=== PATIENT | male | born 1990 | race Caucasian/White ===

== ENCOUNTER 2023-06-18 14:25 | Outpatient (OUT) | payer OTHER, SELFPAY ==
[2023-06-19 15:48] LABS: C. Difficile PCR NEGATIVE (NEGATIVE)
== END 2023-06-18 14:26 | disposition home or self-care (01) ==
LOC: LAB 14:28
PROVIDERS: PCP Family Medicine; Visit Provider Family Medicine
DX: R19.7 Diarrhea, unspecified (principal)
CPT/HCPCS: 87045; 87046; 87427; 87493

== ENCOUNTER 2023-09-11 08:48 | Outpatient (OUT) | payer OTHER, SELFPAY ==
--- OUTSIDE RECORDS SUMMARY | 2023-09-11 09:10 | XMS_ITS | CCD ---
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 Role Phone FRANKO Lewis, DR LAURA Admitting Unavailable FRANKO Lewis, DR LAURA Attending Unavailable DR VALENTÍN ORDONEZ Primary Care Unavailable FRANKO Lewis, DR LAURA Consulting Unavailable Valentín Abdul Primary Care Physician Lonnie FLORIAN Attending Unavailable Valentín Abdul Referring Unavailable Allergies Allergy Classification Reported Allergen(s) Allergy Type Date of Onset Reaction(s) Facility (3 sources) Penicillin; Translations: [penicillin] Drug Allergy Weal (disorder) [facility] Repository (2 sources) Ciprofloxacin; Translations: [ciprofloxacin] Drug Allergy Weal (disorder) [facility] Medications Current Medications Medication Drug Class(es) Dates Sig (Normalized) Sig (Original) citalopram 40 mg oral tablet (1 source) Serotonin Reuptake Inhibitor Start: 07-12-2023 take 1 tablet by mouth once daily CeleXA 40 mg Tab 40 mg = 1 tab(s), Oral, Daily, Refills(s) 0 Start Date: 07/12/23 Status: Ordered lactulose 06753 mg powder for oral solution (1 source) Osmotic Laxative Start: 07-12-2023 lactulose 20 g Oral Pwdr = 1 packet(s), Oral, Daily, PRN as needed for constipation, Refills(s) 0 Start Date: 07/12/23 Status: Ordered pantoprazole 40 mg delayed release oral tablet (1 source) Proton Pump Inhibitor Start: 07-12-2023 take 1 tablet by mouth once daily Pantoprazole [address] Tab 40 mg = 1 tab(s), Oral, Daily, Refills(s) 0 Start Date: 07/12/23 Status: Ordered Problems Problem Classification Problem Date Documented Da te Episodic/Chronic Anxiety disorders (1 source) Anxiety 07-12-2023 Chronic Developmental disorders (1 source) Dyslexia 07-12-2023 Chronic Gastrointestinal hemorrhage (3 sources) Hemorrhage of rectum and anus; Translations: [Hemorrhage of anus and rectum] Onset: 07-30-2023 Episodic Other gastrointestinal disorders (1 source) Irritable bowel syndrome 07-12-2023 Chronic Other nutritional; endocrine; and metabolic disorders (1 source) Body mass index 30+ - obesity 07-30-2023 Chronic Other nutritional; endocrine; and metabolic disorders (1 source) Morbid obesity 07-30-2023 Chronic Other screening for suspected conditions (not mental disorders or infectious disease) (1 source) Encounter for screening for malignant neoplasm of prostate; Translations: [ENC SCREEN MALIG NEOPLASM PROSTATE] Onset: 08-06-2022 Episodic Results Test Name Value Interpretation Reference Range Facil ity Consent for Procedure/Surger yon 08-01-2023 Consent for Procedure/Surgery [id number] #1.00TIFF Normal [facility] Facesheeton 07-31-2023 Facesheet [id number]#1.00TIFF Normal [facility] Ambulatory Visit Summaryon 0 07-30-2023 Ambulatory Visit Summary ZULMA BELLA :1990 Visit Date:07/30/2023 Ambulatory Visit Instructions Your Care Team Attending Physician - ANIVAL LEY, Lonnie Mcarthur Primary Care Physician - Valentín Abdul MD Referring Physician - Valentín Abdul MD This Is Your Medications List citalopram (CeleXA 40 mg Tab) lactulose (lactulose 20 g Oral Pwdr) pantoprazole (Pantoprazole [address] Tab) Procedures Performed Circumcision, Evacuation of hematoma, Repair of right inguinal hernia. Discharge Vitals Heart Rate (Peripheral) 72 Respiratory Rate 16 Blood Pressure 126/80 Height 170 cm Height 67 in Weight 103 kg Weight 226.6 lb BMI 35.64 Medications What How Much When Instructions Unchanged citalopram (CeleXA 40 mg Tab) 1 Tablets By Mouth Every day Unchanged lactulose (lactulose 20 g Oral Pwdr) 1 Packets By Mouth Every day as needed for as needed for constipation Unchanged pantoprazole (Pantoprazole [address] Tab) 1 Tablets By Mouth Every day Medications and Immunizations Administered Not Given influenza virus vaccine, inactivated, Patient Refuses Allergies Cipro (Hives) penicillin (Hives) Problems Ongoing - Any problem that you are currently receiving treatment for. Anxiety BMI 35.0-35.9,adult Dyslexia Irritable bowel syndrome Morbid obesity Rectal bleed Patient Survey You may receive a survey via text or e-mail asking about your office visit. Please share your experience with us by completing your survey. We appreciate your feedback and thank you for choosing us for your care. Normal [facility] Physician Referralon 024 Physician Referral [id number] #1.00TIFF Normal [facility] INSULINon 07-31-2022 Insulin 17.5 uIU/mL Normal 2.6-24.9 [facility] Comment on above: Performed By: #### I NSULIN #### [facility] [address] [place] [address] Dr. Ashanti Deras CBC AUTO DIFFon 07-30-2022 BASO # 0.1 103/ul Normal 0.0-0.1 [facility] Comment on above: Performed By: #### C BC #### [facility] [address] [address] [address] Ashanti Deras Basophils/100 WBC (Bld) 1.2 % Normal 0.2-2.0 [facility] Comment on above: Performed By: #### C BC #### [facility] [address] [address] [address] Ashanti Deras EO # 0.3 103/ul Normal 0.0-0.7 [facility] Comment on above: Performed By: #### C BC #### [facility] [address] [address] [address] Ashanti Deras Eosinophils/100 WBC (Bld) 4.0 % Normal 0.9-7.0 [facility] Comment on above: Performed By: #### C BC #### [facility] [address] [place] [address] Dr. Ashanti Deras Erythrocyte distribution width (RBC) [Ratio] 12.6 % Normal 11.0-15.0 [facility] Comment on above: Performed By: #### C BC #### [facility] [address] [place] [address] Dr. Ashanti Deras Hematocrit (Bld) [Volume fraction] 44.4 % Normal 42.0-54.0 [facility] Comment on above: Performed By: #### C BC #### [facility] [address] [address] [address] Ashanti Deras Hemoglobin (Bld) [Mass/Vol] 15.3 g/dL Normal 14.0-18.0 [facility] Comment on above: Performed By: #### C BC #### [facility] [address] [place] [address] Dr. Ashanti Deras IG # 0.02 10e3/ul Normal 0.00-0.03 [facility] Comment on above: Performed By: #### C BC #### [facility] [address] [place] [address] Dr. Ashanti Deras IG % 0.3 % Normal 0.0-0.5 [facility] Comment on above: Performed By: #### C BC #### [facility] [address] [place] [address] Dr. Ashanti Deras LYMPH # 2.3 103/ul Normal 1.2-3.8 [facility] Comment on above: Performed By: #### C BC #### [facility] [address] [place] [address] Dr. Ashanti Deras Lymphocytes/100 WBC (Bld) 34.0 % Normal 20.5-60.0 [facility] Comment on above: Performed By: #### C BC #### [facility] [address] [place] [address] Dr. Ashanti Deras MANUAL DIFF REQ NO Normal [facility] Comment on above: Performed By: #### C BC #### [facility] [address] [place] [address] Dr. Ashanti Deras MCH (RBC) [Entitic mass] 30.6 pg Normal 25.9-34.0 [facility] Comment on above: Performed By: #### C BC #### [facility] [address] [place] [address] Dr. Ashanti Deras MCHC (RBC) [Mass/Vol] 34.5 g/dL Normal 29.9-35.2 [facility] Comment on above: Performed By: #### C BC #### [facility] [address] [place] [address] Dr. Ashanti Deras MCV (RBC) [Entitic vol] 88.8 fL Normal 80.0-94.0 [facility] Comment on above: Performed By: #### C BC #### [facility] [address] [place] [address] Dr. Ashanti Deras MONO # 0.6 103/ul Normal 0.3-0.8 [facility] Comment on above: Performed By: #### C BC #### [facility] [address] [place] [address] Dr. Ashanti Deras Monocytes/100 WBC (Bld) 9.5 % Normal 1.7-12.0 [facility] Comment on above: Performed By: #### C BC #### [facility] [address] [place] [address] Dr. Ashanti Deras NEUT # 3.4 103/ul Normal 1.4-6.5 [facility] Comment on above: Performed By: #### C BC #### [facility] [address] [place] [address] Dr. Ashanti Deras Neutrophils/100 WBC (Bld) 51.0 % Normal 43.0-75.0 [facility] Comment on above: Performed By: #### C BC #### [facility] [address] [place] [address] Dr. Ashanti Deras Platelet mean volume (Bld) [Entitic vol] 11.2 fL Normal 9.5-13.5 [facility] Comment on above: Performed By: #### C BC #### [facility] [address] [place] [address] Dr. Ashanti Deras PLT 228 103/ul Normal 150-450 [facility] Comment on above: Performed By: #### C BC #### [facility] [address] [address] [address] Ashanti Deras RBC 5.00 106/ul Normal 4.70-6.10 [facility] Comment on above: Performed By: #### C BC #### [facility] [address] [place] [address] Dr. Ashanti Deras WBC 6.7 103/ul Normal 4.0-11.0 [facility] Comment on above: Performed By: #### C BC #### [facility] [address] [place] [address] Dr. Ashanti Deras FREE THYROXINE INDEX T7on FTI 2.38 Normal 1.30-4.50 [facility] Comment on above: Performed By: #### U CHEIKH, TSH, T7, CMP, LIPID #### [facility] [address] [place] [address] Dr. Ashanti Deras T3U 35.0 % Normal 33.0-40.0 [facility] Comment on above: Performed By: #### U CHEIKH, TSH, T7, CMP, LIPID #### [facility] [address] [place] [address] Dr. Ashanti Deras T4 [Mass/Vol] 6.80 ug/dL Normal 4.50-12.10 [facility] Comment on above: Performed By: #### U CHEIKH, TSH, T7, CMP, LIPID #### [facility] [address] [place] [address] Dr. Ashanti Deras GLYCOHEMOGLOBIN A1Con 2022 ADA RECOMMENDATION SEE BELOW Normal [facility] Comment on above: Result Comment: ADA RECOMMENDED LIMIT 4.0 - 6.0 ADA THERAPEUTIC TARGET < 7.0 ACTION SUGGESTED > 7.0 Performed By: #### A 1C #### [facility] [address] [place] [address] Dr. Ashanti Deras Glucose [Mass/Vol] 114 mg/dL Normal [facility] Comment on above: Performed By: #### A 1C #### [facility] [address] [place] [address] Dr. Ashanti Deras HbA1c (Bld) [Mass fraction] 5.6 % Normal 4.5-6.2 [facility] Comment on above: Performed By: #### A 1C #### [facility] [address] [address] [address] Ashanti Deras LIPID PROFILEon 07-30-2022 CHOL-HDL RATIO NORM SEE BELOW Normal [facility] Comment on above: Result Comment: 3.3 - 4.4 LOW RISK 4.4 - 7.1 AVERAGE RISK 7.1 - 11.0 MODERATE RISK >11.0 HIGH RISK Performed By: #### U CHEIKH, TSH, T7, CMP, LIPID #### [facility] [address] [address] [address] Ashanti Deras Cholesterol [Mass/Vol] 135 mg/dL Normal <=200 [facility] Comment on above: Performed By: #### U CHEIKH, TSH, T7, CMP, LIPID #### [facility] [address] [place] [address] Dr. Ashanti Deras Cholesterol in HDL [Mass/Vol] 26 mg/dL Critically low 40-60 [facility] Comment on above: Performed By: #### U CHEIKH, TSH, T7, CMP, LIPID #### [facility] [address] [address] [address] Ashanti Deras Cholesterol in LDL [Mass/Vol] 82.2 mg/dL Normal [facility] Comment on above: Performed By: #### U CHEIKH, TSH, T7, CMP, LIPID #### [facility] [address] [address] [address] Ashanti Deras Cholesterol.total/Cho lesterol in HDL [Mass ratio] 5.2 {ratio} Normal [facility] Comment on above: Performed By: #### U CHEIKH, TSH, T7, CMP, LIPID #### [facility] [address] [address] [address] Ashanti Deras HDL NORMAL > or = 60 mg/dl - LOW CARDIOVASCULAR RISK <40 mg/dl - HIGH CARDIOVASCULAR RISK Normal [facility] Comment on above: Performed By: #### U CHEIKH, TSH, T7, CMP, LIPID #### [facility] [address] [place] [address] Dr. Ashanti Deras LDL CALC NORMAL SEE BELOW Normal [facility] Comment on above: Result Comment: <100 mg/dl OPTIMAL 100 - 129 mg/dl NEAR OR ABOVE OPTIMAL 130 - 159 mg/dl BORDERLINE HIGH 160 - 189 mg/dl HIGH >190 mg/dl VERY HIGH Performed By: #### U CHEIKH, TSH, T7, CMP, LIPID #### [facility] [address], [place] [address] Dr. Ashanti Deras Triglyceride [Mass/Vol] 134 mg/dL Normal <=150 [facility] Comment on above: Performed By: #### U CHEIKH, TSH, T7, CMP, LIPID #### [facility] [address] [address] [address] Ashanti Deras VLDL CALC 26.8 mg/dL Normal [facility] Comment on above: Performed By: #### U CHEIKH, TSH, T7, CMP, LIPID #### [facility] [address] [address] [address] Ashanti Deras OCC BLD IMMUNO SCREENon 07-18 OCCULT BLOOD Negative Normal NEGATIVE [facility] Comment on above: Performed By: #### O BSCRN #### [facility] [address] [address] [address] Ashanti Deras PROF 14(COMP METB)on 023 Albumin [Mass/Vol] 4.2 g/dL Normal 3.4-5.0 [facility] Comment on above: Performed By: #### U CHEIKH, TSH, T7, CMP, LIPID #### [facility] [address] [address] [address] Ashanti Deras Albumin/Globulin [Mass ratio] 1.3 {ratio} Normal [facility] Comment on above: Performed By: #### U CHEIKH, TSH, T7, CMP, LIPID #### [facility] [address] [address] [address] Ashanti Deras ALP [Catalytic activity/Vol] 70 U/L Normal 46-116 [facility] Comment on above: Performed By: #### U CHEIKH, TSH, T7, CMP, LIPID #### [facility] [address] [address] [address] Ashanti Deras ALT [Catalytic activity/Vol] 46 U/L Normal 16-63 [facility] Comment on above: Performed By: #### U CHEIKH, TSH, T7, CMP, LIPID #### [facility] [address] [address] [address] Ashanti Deras Anion gap [Moles/Vol] 11.8 mmol/L Normal Th e [facility] Comment on above: Performed By: #### U CHEIKH, TSH, T7, CMP, LIPID #### [facility] [address] [address] [address] Ashanti Deras AST [Catalytic activity/Vol] 28 U/L Normal 15-37 [facility] Comment on above: Performed By: #### U CHEIKH, TSH, T7, CMP, LIPID #### [facility] [address] [place] [address] Dr. Ashanti Deras Bilirubin [Mass/Vol] 0.9 mg/dL Normal 0.2-1.0 [facility] Comment on above: Performed By: #### U CHEIKH, TSH, T7, CMP, LIPID #### [facility] [address] [address] [address] Ashanti Deras Calcium [Mass/Vol] 8.7 mg/dL Normal 8.5-10.1 [facility] Comment on above: Performed By: #### U CHEIKH, TSH, T7, CMP, LIPID #### [facility] [address] [address] [address] Ashanti Deras Chloride [Moles/Vol] 106 mmol/L Normal 98-107 [facility] Comment on above: Performed By: #### U CHEIKH, TSH, T7, CMP, LIPID #### [facility] [address] [address] [address] Ashanti Deras CO2 [Moles/Vol] 26.9 mmol/L Normal 21.0-32.0 [facility] Comment on above: Performed By: #### U CHEIKH, TSH, T7, CMP, LIPID #### [facility] [address] [address] [address] Ashanti Deras Creatinine [Mass/Vol] 1.15 mg/dL Normal 0.70-1.30 [facility] Comment on above: Performed By: #### U CHEIKH, TSH, T7, CMP, LIPID #### [facility] [address] [place] [address] Dr. Ashanti Deras EGFR-AF UGANDAN >60 Normal >=60 [facility] Comment on above: Performed By: #### U CHEIKH, TSH, T7, CMP, LIPID #### [facility] [address] [address] [address] Ashanti Deras EGFR-NON AF UGANDAN >60 Normal >=60 [facility] Comment on above: Performed By: #### U CHEIKH, TSH, T7, CMP, LIPID #### [facility] [address] [place] [address] Dr. Ashanti Deras Globulin (S) [Mass/Vol] 3.3 g/dL Normal [facility] Comment on above: Performed By: #### U CHEIKH, TSH, T7, CMP, LIPID #### [facility] [address] [place] [address] Dr. Ashanti Deras Glucose [Mass/Vol] 103 mg/dL Normal 74-106 [facility] Comment on above: Performed By: #### U CHEIKH, TSH, T7, CMP, LIPID #### [facility] [address] [address] [address] Ashanti Deras Potassium [Moles/Vol] 3.7 mmol/L Normal 3.5-5.1 [facility] Comment on above: Performed By: #### U CHEIKH, TSH, T7, CMP, LIPID #### [facility] [address] [place] [address] Dr. Ashanti Deras Protein [Mass/Vol] 7.5 g/dL Normal 6.4-8.2 [facility] Comment on above: Performed By: #### U CHEIKH, TSH, T7, CMP, LIPID #### [facility] [address] [place] [address] Dr. Ashanti Deras Sodium [Moles/Vol] 141 mmol/L Normal 136-145 [facility] Comment on above: Performed By: #### U CHEIKH, TSH, T7, CMP, LIPID #### [facility] [address] [address] [address] Ashanti Deras Urea nitrogen [Mass/Vol] 12.0 mg/dL Normal 7.0-18.0 [facility] Comment on above: Performed By: #### U CHEIKH, TSH, T7, CMP, LIPID #### [facility] [address] [place] [address] Dr. Ashanti Deras Urea nitrogen/Creatinine [Mass ratio] 10.4 mg/mg Normal [facility] Comment on above: Performed By: #### U CHEIKH, TSH, T7, CMP, LIPID #### [facility] [address] [place] [address] Dr. Ashanti Deras TSHon 07-30-2022 TSH 0.880 uIU/mL Normal 0.358-3.740 [facility] Comment on above: Performed By: #### U CHEIKH, TSH, T7, CMP, LIPID #### [facility] [address] [place] [address] Dr. Ashanti Deras URIC ACID SERUMon 07-30-2022 Urate [Mass/Vol] 7.6 mg/dL Critically high 3.5-7.2 [facility] Comment on above: Performed By: #### U CHEIKH, TSH, T7, CMP, LIPID #### [facility] [address] [place] [address] Dr. Ashanti Deras Vital Signs Date Time Vital Sign Value Performing Clinician Jude hu 07-30-2023 13:07-0400 Blood Pressure Location Lonnie FLORIAN [facility] 07-30-2023 13:07-0400 Diastolic blood pressure 80 mm[Hg] Lonnie FLORIAN [facility] 07-30-2023 13:07-0400 Heart rate 72 /min Lonnie FLORIAN [facility] 07-30-2023 13:07-0400 Respiratory rate 16 /min Lonnie FLORIAN [facility] 07-30-2023 13:07-0400 Systolic blood pressure 126 mm[Hg] Lonnie FLORIAN [facility] Encounters Encounter Date Encounter Type Care Provider Facility Start: 07-30-2023 End: 07-31-2023 ambulatory Lonnie FLORIAN Facility:[facility] Start: 07-30-2023 End: 07-30-2023 Patient encounter procedure Lonnie FLORIAN [facility] Start: 06-28-2023 ambulatory Lonnie FLORIAN Facility: [facility] Start: 08-06-2022 Encounter for genera l adult medical examination without abnormal findings DR VALENTÍN ABDUL . [facility] Start: 07-30-2022 End: 07-31-[address] VALENTÍN ABDUL . Facility: Start: 07-30-2022 End: 07-31-2022 Encounter for general adult medical examination without abnormal findings DR VALENTÍN ABDUL . Facility: Procedures Date Procedure Procedure Detail Performing Clinician Start: 07-30-[address] PK ABDUL . Comment on above: Performed By: #### P [facility] #### [facility] [address] [place] [address] Dr. Ashanti Deras Circumcision Lonnie JAMESEz Evacuation of hematoma Zander FLORIAN Comment on above: penile Repair of right ingu inal hernia Lonnie RAMIREZEz Immunizations Immunization Date Immunization Notes Care Provider Fa cili 02-13-2023 influenza virus vaccine, unspecified formulation Lonnie RAMIREZEz [facility] 03-24-2022 SARS-CoV-2 (COVID-19 ) [id number] Lonnie RAMIREZL [facility] 01-04-2022 SARS-CoV-2 mRNA (vqcfzblazzb-vztv-kzrt ose) vaccine Lonnie RAMIREZL [facility] 04-14-2021 SARS-CoV-2 (COVID-19 ) mRNA BNT-162b2 vax Lonnie FLORIAN [facility] 09-24-2020 SARS-CoV-2 (COVID-19 ) Ad26 vaccine, recombinant Lonnie FLORIAN [facility] Comment on above: Result Comment: 2023: TPVAL NEGATED: Highlighted row has not occurred!07-30-2023 influenza virus vaccine, unspecified formulation Lonnie FLORIAN [facility] Payers Date Payer Category Payer Unknown [id number] 1990 Unknown [id number] 1990 Unknown [id number] Social History Date Type Detail Facility Start: 07-30-2023 Tobacco smoking status Never s moked tobacco (finding) [facility] [place] Tobacco smoking status Never Gener [facility] Sex Assigned At Male [facility] Functional Status Date Assessment Result Facility 07-30-2023 Functional Status N/A [facility] Clinical Note 07-30-2023 Note Date & Type Note Facility 07-30-2023 Note Chief Complaint consultation for rectal bleeding HPI Staff 33 year old male presents on consultation from Dr. Abdul for rectal bleeding. Reports approximate 2 month history of intermittent rectal bleeding with bowel movements. Reports blood is bright red. Reports noting blood primarily in toilet water. Notes occasional mucus as well. Denies rectal pain or change in bowel habits. Patient with history of chronic constipation for which he takes Lactulose PRN. Rare crampy abdominal pain. Denies nausea or vomiting. No unexplained weight loss. Never had colonoscopy in the past. No known family history of IBD or colon cancer. History of Present Illness 33 yo male with h/o dyslexia, IBS, anxiety, referred for intermittent rectal bleeding, began 2 months ago, red blood with bms, painless, no hemorrhoid prolapse, in toilet bowel and with wiping; can have looser or firm stools but happens with both, no abd pain, was worse when he would take ibuprofen, but happens even without it; h/o chronic constipation for which he takes Lactulose as needed; only abdominal operation was RIHR; no asa use; no SBE prophylaxis; no fmhx of colon cancer or IBD. no tobacco use. Review of Systems PHQ Score Initial Depression Screen Score: 0 SCORE ROS - Provider Constitutional: no fever, no sweats, no weight loss. Eyes: no glasses, no blurred vision, no visual loss. ENMT: no dentures, no hoarseness, no swallowing difficulties, no hearing loss, no ear infection(s), no nose bleeds. Cardiovascular: normal blood pressure, no chest pain, regular heartbeat, no heart murmur. Respiratory: no shortness of breath, no cough, no asthma, no wheezing. Gastrointestinal: no nausea, no vomiting, no diarrhea, no constipation, no blood in stool, yes change in bowel habits, no abdominal pain, no hepatitis. Genitourinary: no kidney stones, no urine infection, no dysuria. Musculoskeletal: no pain, no weakness. Skin: no changing moles, no rash, no skin lumps. Neurologic: no seizures, no epilepsy, no headache. Psychiatric: no emotional or psychiatric problem. Heme/Lymph: no bleeding problems, no anemia, no blood clots, no transfusions. Allergy/Immunologic: no swollen lymph nodes/glands, no IV drug abuse. Other: Additional ROS info: Except as noted in the above Review of Systems and in the History of Present Illness, all other systems have been reviewed and are negative or noncontributory. Physical Exam Vitals & Measurements HR: 72(Peripheral) RR: 16 BP: 126/80 HT: 67 in HT: 170 cm WT: 103 kg WT: 226.6 lb BMI: 35.64 HEENT: normal conjunctiva, sclera clear, no scleral icterus, EOM intact, PERRLA, oral mucosa moist without lesions. Neck: trachea midline, no mass, symmetric, no thyromegaly or nodules, no adenopathy Respiratory: lungs CTA, respirations non labored. Cardiovascular: regular rate and rhythm, no murmur, no pedal edema or varicosities. Gastrointestinal: obese,soft, non distended, no tenderness, no masses, no palpable hernias, diastasis recti yes, no hepatosplenomegaly; normal bs Lymphatic: no cervical adenopathy, no supraclavicular adenopathy. Musculoskeletal: normal gait, digits and nails without infection, nodes, cyanosis, clubbing. Skin: no rashes, no lesions, no ulcers, no subcutaneous nodules, induration. Psychiatric/Neuro: oriented to time, place, person, judgement normal, affect appropriate for age, insight intact, no focal deficits. Tests: , review of old records completed , Discussed surgical options, risks, and possible complications with patient. Assessment/Plan 1. Rectal bleeding (K62.5: Hemorrhage of anus and rectum) plan colonoscopy under anesthesia for further evaluation, informed consent obtained. Follow-up No qualifying data available Problem List/Past Medical History Ongoing Anxiety BMI 35.0-35.9,adult Dyslexia Irritable bowel syndrome Morbid obesity Rectal bleed Rectal bleeding Historical No qualifying data Procedure/Surgical History Circumcision, Evacuation of hematoma, Repair of right inguinal hernia. Medications CeleXA 40 mg Tab, 40 mg= 1 tab(s), Oral, Daily lactulose 20 g Oral Pwdr, 1 packet(s), Oral, Daily, PRN Pantoprazole [address] Tab, 40 mg= 1 tab(s), Oral, Daily Allergies Cipro (Hives) penicillin (Hives) Social History Alcohol - Denies Alcohol Use, 07/30/2023 Substance Abuse - Denies Substance Abuse, 07/30/2023 Tobacco Never (less than 100 in lifetime) Tobacco Use:. Never Smokeless Tobacco Use:., 07/30/2023 Family History Asthma: Brother. Diabetes mellitus type 2: Mother. Heart disease: Mother and Father. Hypertension: Mother. Ovarian cancer: Mother. Pancreatic adenocarcinoma: Father. Immunizations Vaccine Date Status Comments influenza virus vaccine, inactivated - Not Given Patient Refuses influenza virus vaccine, inactivated 02/13/2023 Recorded SARS-CoV-2 (COVID-19) [id number] 03/24/2022 Recorded SARSCoV2 mRNA(vjaewdiyt-iyjw-siuhef) vac 01/04/2022 Recorded S (more content not included)... [facility] Comment on above: Result Comment: Elec tronically Signed By: ANIVAL LEY, Lonnie Maddox\Date and Time Signed: 07/30/23 20:22 EDT Evaluation + Plan note Note Date & Type Note Facility Evaluation + Plan note No data available for this section [facility] Discharge instructions Note Date & Type Note Facility Hospital Discharge instructions No data available for this section [facility] note Note Date & Type Note Facility Progress note No data available for this section [facility] Summary Purpose Family History No Family History Records Found No data available for this section No Family History Records Found Advance Directives No Advanced Directives Records FoundNo Advanced Directives Records Found Additional Source Comments (unrecognized sect ion and content) No Status Records FoundNo Status Records Found INFORMATION SOURCE (unrecogn ized section and content) DATE CREATED AUTHOR 08/06/2022 [facility] DATE CREATED AUTHOR AUTHOR'S ORGANIZ ATION 08/02/2023 [facility] Patient Care team informatio n (unrecognized section and content) Personnel Name: Valentín Abdul MD Address: Address: [address] [place] [address] FOR RECORDS PERTAINING TO PATIENTS WHO ARE OR HAVE BEEN ENROLLED IN A CHEMICAL DEPENDENCY/SUBSTANCEABUSE PROGRAM, SOME INFORMATION MAY BE OMITTED. This clinical summary was aggregated from multiple sources. Caution should be exercised in using it in the provision of clinical care. This summary normalizes information from multiple sources, and as a consequence, information in this document may materially change the coding, format and clinical context of patient data. In addition, data may be omitted in some cases. CLINICAL DECISIONS SHOULD BE BASED ON THE PRIMARY CLINICAL RECORDS. [facility] provides no warranty or guarantee of the accuracy or completeness of information in this document.
== END 2023-09-11 08:49 | disposition home or self-care (01) ==
LOC: PST 08:49
PROVIDERS: PCP Family Medicine; Visit Provider Surgery
DX: Z01.818 Encounter for other preprocedural examination (principal); K62.5 Hemorrhage of anus and rectum; K59.09 Other constipation

== ENCOUNTER 2023-09-18 06:23 | Day surgery (SDC) | payer OTHER, SELFPAY ==
--- NOTE | 2023-09-18 | OP_ITS ---
OPERATION DATE: 09/18/2023 PREOPERATIVE DIAGNOSIS: Rectal bleeding, bowel changes. POSTOPERATIVE DIAGNOSIS: Normal colonoscopy to terminal ileum. PROCEDURE: Colonoscopy to terminal ileum. SURGEON: Lonnie Dowling M.D. ANESTHESIA: Monitored anesthesia care. ESTIMATED BLOOD LOSS: Zero. INDICATIONS AND CONSENT: Patient is a 33-year-old male presents for evaluation of bowel changes and rectal bleeding. Indications, risks, benefits, alternatives of proceeding with colonoscopy were explained extensively to the patient, including the risks of bleeding, colon perforation or anesthetic complications. All of his questions were answered. Informed consent was obtained. PROCEDURE: Patient brought to the operating room, placed in the left lateral decubitus position. Monitored anesthesia care was provided. Rectal exam was performed which showed no masses or blood. The scope was inserted into the anal canal. Under direct visualization was advanced. It was advanced to the cecum where cecal markings were clearly identified. There was noted to be a good prep. Upon withdrawal of the scope, mucosal surfaces were carefully examined. There were no mass lesions or polyps. It should be noted that the terminal ileum was intubated and found to be normal without ulceration or inflammation. There was no significant diverticulosis. The scope was retroflexed in the anal canal. There was no significant hemorrhoidal disease, no evidence of old or new blood. Scope was then withdrawn. Patient tolerated procedure well, was sent to recovery room in good condition. screening colonoscopy should be in 10 years. CC: Ha Hankins M.D. MTDD
--- OUTSIDE RECORDS SUMMARY | 2023-09-18 06:26 | XMS_ITS | CCD ---
Author Organization [facility] Care Team Providers Care Learning Design Specialist Name Role Phone FRANKO Lewis, DR LAURA Admitting Unavailable FRANKO Lewis, DR LAURA Attending Unavailable DR VALENTÍN ORDONEZ Primary Care Unavailable FRANKO Lewis, DR LAURA Consulting Unavailable Valentín Abdul Primary Care Physician Lonnie FLORIAN Attending Unavailable Valentín Abdul Referring Unavailable Allergies Allergy Classification Reported Allergen(s) Allergy Type Date of Onset Reaction(s) Facility (3 sources) Penicillin; Translations: [penicillin] Drug Allergy Weal (disorder) [facility] Repository (2 sources) Ciprofloxacin; Translations: [ciprofloxacin] Drug Allergy Weal (disorder) [facility] [place] Medications Current Medications Medication Drug Class(es) Dates Sig (Normalized) Sig (Original) citalopram 40 mg oral tablet (1 source) Serotonin Reuptake Inhibitor Start: 07-12-2023 take 1 tablet by mouth once daily CeleXA 40 mg Tab 40 mg = 1 tab(s), Oral, Daily, Refills(s) 0 Start Date: 07/12/23 Status: Ordered lactulose 38190 mg powder for oral solution (1 source) [...] for Procedure/Surger yon 08-01-2023 Consent for Procedure/Surgery [id number] #1.00TIFF Normal [facility] Facesheeton 07-31-2023 Facesheet [id number]#1.00TIFF Normal [facility] Ambulatory Visit Summaryon 0 07-30-2023 Ambulatory Visit [...] for choosing us for your care. Normal [facility] Physician Referralon 024 Physician Referral [id number] #1.00TIFF Normal [facility] INSULINon 07-31-2022 Insulin 17.5 uIU/mL Normal 2.6-24.9 [facility] Comment on above: Performed By: #### I NSULIN #### [facility] [address] [place] [address] Dr. Ashanti Deras CBC AUTO DIFFon 07-30-2022 BASO # 0.1 103/ul Normal 0.0-0.1 [facility] Comment on above: Performed By: #### C BC #### [facility] [address] [address] [address] Ashanti Deras Basophils/100 WBC (Bld) 1.2 % Normal 0.2-2.0 [facility] Comment on above: Performed By: #### C BC #### [facility] [address] [address] [address] Ashanti Deras EO # 0.3 103/ul Normal 0.0-0.7 [facility] Comment on above: Performed By: #### C BC #### [facility] [address] [address] [address] Ashanti Deras Eosinophils/100 WBC (Bld) 4.0 % Normal 0.9-7.0 [facility] Comment on above: Performed By: #### C BC #### [facility] [address] [place] [address] Dr. Ashanti Deras Erythrocyte distribution width (RBC) [Ratio] 12.6 % Normal 11.0-15.0 [facility] Comment on above: Performed By: #### C BC #### [facility] [address] [place] [address] Dr. Ashanti Deras Hematocrit (Bld) [Volume fraction] 44.4 % Normal 42.0-54.0 [facility] Comment on above: Performed By: #### C BC #### [facility] [address] [address] [address] Ashanti Deras Hemoglobin (Bld) [Mass/Vol] 15.3 g/dL Normal 14.0-18.0 [facility] Comment on above: Performed By: #### C BC #### [facility] [address] [place] [address] Dr. Ashanti Deras IG # 0.02 10e3/ul Normal 0.00-0.03 [facility] Comment on above: Performed By: #### C BC #### [facility] [address] [place] [address] Dr. Ashanti Deras IG % 0.3 % Normal 0.0-0.5 [facility] Comment on above: Performed By: #### C BC #### [facility] [address] [place] [address] Dr. Ashanti Deras LYMPH # 2.3 103/ul Normal 1.2-3.8 [facility] Comment on above: Performed By: #### C BC #### [facility] [address] [place] [address] Dr. Ashanti Deras Lymphocytes/100 WBC (Bld) 34.0 % Normal 20.5-60.0 [facility] Comment on above: Performed By: #### C BC #### [facility] [address] [place] [address] Dr. Ashanti Deras MANUAL DIFF REQ NO Normal [facility] Comment on above: Performed By: #### C BC #### [facility] [address] [place] [address] Dr. Ashanti Deras MCH (RBC) [Entitic mass] 30.6 pg Normal 25.9-34.0 [facility] Comment on above: Performed By: #### C BC #### [facility] [address] [place] [address] Dr. Ashanti Deras MCHC (RBC) [Mass/Vol] 34.5 g/dL Normal 29.9-35.2 [facility] Comment on above: Performed By: #### C BC #### [facility] [address] [place] [address] Dr. Ashanti Deras MCV (RBC) [Entitic vol] 88.8 fL Normal 80.0-94.0 [facility] Comment on above: Performed By: #### C BC #### [facility] [address] [place] [address] Dr. Ashanti Deras MONO # 0.6 103/ul Normal 0.3-0.8 [facility] Comment on above: Performed By: #### C BC #### [facility] [address] [place] [address] Dr. Ashanti Deras Monocytes/100 WBC (Bld) 9.5 % Normal 1.7-12.0 [facility] Comment on above: Performed By: #### C BC #### [facility] [address] [place] [address] Dr. Ashanti Deras NEUT # 3.4 103/ul Normal 1.4-6.5 [facility] Comment on above: Performed By: #### C BC #### [facility] [address] [place] [address] Dr. Ashanti Deras Neutrophils/100 WBC (Bld) 51.0 % Normal 43.0-75.0 [facility] Comment on above: Performed By: #### C BC #### [facility] [address] [place] [address] Dr. Ashanti Deras Platelet mean volume (Bld) [Entitic vol] 11.2 fL Normal 9.5-13.5 [facility] Comment on above: Performed By: #### C BC #### [facility] [address] [place] [address] Dr. Ashanti Deras PLT 228 103/ul Normal 150-450 [facility] Comment on above: Performed By: #### C BC #### [facility] [address] [address] [address] Ashanti Deras RBC 5.00 106/ul Normal 4.70-6.10 [facility] Comment on above: Performed By: #### C BC #### [facility] [address] [place] [address] Dr. Ashanti Deras WBC 6.7 103/ul Normal 4.0-11.0 [facility] Comment on above: Performed By: #### C BC #### [facility] [address] [place] [address] Dr. Ashanti Deras FREE THYROXINE INDEX T7on FTI 2.38 Normal 1.30-4.50 [facility] Comment on above: Performed By: #### U CHEIKH, TSH, T7, CMP, LIPID #### [facility] [address] [place] [address] Dr. Ashanti Deras T3U 35.0 % Normal 33.0-40.0 [facility] Comment on above: Performed By: #### U CHEIKH, TSH, T7, CMP, LIPID #### [facility] [address] [place] [address] Dr. Ashanti Deras T4 [Mass/Vol] 6.80 ug/dL Normal 4.50-12.10 [facility] Comment on above: Performed By: #### U CHEIKH, TSH, T7, CMP, LIPID #### [facility] [address] [place] [address] Dr. Ashanti Deras GLYCOHEMOGLOBIN A1Con 2022 ADA RECOMMENDATION SEE BELOW Normal [facility] Comment on above: Result Comment: ADA RECOMMENDED LIMIT 4.0 - 6.0 ADA THERAPEUTIC TARGET < 7.0 ACTION SUGGESTED > 7.0 Performed By: #### A 1C #### [facility] [address] [place] [address] Dr. Ashanti Deras Glucose [Mass/Vol] 114 mg/dL Normal [facility] Comment on above: Performed By: #### A 1C #### [facility] [address] [place] [address] Dr. Ashanti Deras HbA1c (Bld) [Mass fraction] 5.6 % Normal 4.5-6.2 [facility] Comment on above: Performed By: #### A 1C #### [facility] [address] [address] [address] Ashanti Deras LIPID PROFILEon 07-30-2022 CHOL-HDL RATIO NORM SEE BELOW Normal [facility] Comment on above: Result Comment: 3.3 - 4.4 LOW RISK 4.4 - 7.1 AVERAGE RISK 7.1 - 11.0 MODERATE RISK >11.0 HIGH RISK Performed By: #### U CHEIKH, TSH, T7, CMP, LIPID #### [facility] [address] [address] [address] Ashanti Deras Cholesterol [Mass/Vol] 135 mg/dL Normal <=200 [facility] Comment on above: Performed By: #### U CHEIKH, TSH, T7, CMP, LIPID #### [facility] [address] [place] [address] Dr. Ashanti Deras Cholesterol in HDL [Mass/Vol] 26 mg/dL Critically low 40-60 [facility] Comment on above: Performed By: #### U CHEIKH, TSH, T7, CMP, LIPID #### [facility] [address] [address] [address] Ashanti Deras Cholesterol in LDL [Mass/Vol] 82.2 mg/dL Normal [facility] Comment on above: Performed By: #### U CHEIKH, TSH, T7, CMP, LIPID #### [facility] [address] [address] [address] Ashanti Deras Cholesterol.total/Cho lesterol in HDL [Mass ratio] 5.2 {ratio} Normal [facility] Comment on above: Performed By: #### U CHEIKH, TSH, T7, CMP, LIPID #### [facility] [address] [address] [address] Ashanti Deras HDL NORMAL > or = 60 mg/dl - LOW CARDIOVASCULAR RISK <40 mg/dl - HIGH CARDIOVASCULAR RISK Normal [facility] Comment on above: Performed By: #### U CHEIKH, TSH, T7, CMP, LIPID #### [facility] [address] [place] [address] Dr. Ashanti Deras LDL CALC NORMAL SEE BELOW Normal [facility] Comment on above: Result Comment: <100 mg/dl OPTIMAL 100 - 129 mg/dl NEAR OR ABOVE OPTIMAL 130 - 159 mg/dl BORDERLINE HIGH 160 - 189 mg/dl HIGH >190 mg/dl VERY HIGH Performed By: #### U CHEIKH, TSH, T7, CMP, LIPID #### [facility] [address] [place], [place] [address] Dr. Ashanti Deras Triglyceride [Mass/Vol] 134 mg/dL Normal <=150 [facility] Comment on above: Performed By: #### U CHEIKH, TSH, T7, CMP, LIPID #### [facility] [address] [address] [address] Ashanti Deras VLDL CALC 26.8 mg/dL Normal [facility] Comment on above: Performed By: #### U CHEIKH, TSH, T7, CMP, LIPID #### [facility] [address] [address] [address] Ashanti Deras OCC BLD IMMUNO SCREENon 07-18 OCCULT BLOOD Negative Normal NEGATIVE [facility] Comment on above: Performed By: #### O BSCRN #### [facility] [address] [address] [address] Ashanti Deras PROF 14(COMP METB)on 023 Albumin [Mass/Vol] 4.2 g/dL Normal 3.4-5.0 [facility] Comment on above: Performed By: #### U CHEIKH, TSH, T7, CMP, LIPID #### [facility] [address] [address] [address] Ashanti Deras Albumin/Globulin [Mass ratio] 1.3 {ratio} Normal [facility] Comment on above: Performed By: #### U CHEIKH, TSH, T7, CMP, LIPID #### [facility] [address] [address] [address] Ashanti Deras ALP [Catalytic activity/Vol] 70 U/L Normal 46-116 [facility] Comment on above: Performed By: #### U CHEIKH, TSH, T7, CMP, LIPID #### [facility] [address] [address] [address] Ashanti Deras ALT [Catalytic activity/Vol] 46 U/L Normal 16-63 [facility] Comment on above: Performed By: #### U CHEIKH, TSH, T7, CMP, LIPID #### [facility] [address] [address] [address] Ashanti Deras Anion gap [Moles/Vol] 11.8 mmol/L Normal Th [facility] Comment on above: Performed By: #### U CHEIKH, TSH, T7, CMP, LIPID #### [facility] [address] [address] [address] Ashanti Deras AST [Catalytic activity/Vol] 28 U/L Normal 15-37 [facility] Comment on above: Performed By: #### U CHEIKH, TSH, T7, CMP, LIPID #### [facility] [address] [place] [address] Dr. Ashanti Deras Bilirubin [Mass/Vol] 0.9 mg/dL Normal 0.2-1.0 [facility] Comment on above: Performed By: #### U CHEIKH, TSH, T7, CMP, LIPID #### [facility] [address] [address] [address] Ashanti Deras Calcium [Mass/Vol] 8.7 mg/dL Normal 8.5-10.1 [facility] Comment on above: Performed By: #### U CHEIKH, TSH, T7, CMP, LIPID #### [facility] [address] [address] [address] Ashanti Deras Chloride [Moles/Vol] 106 mmol/L Normal 98-107 [facility] Comment on above: Performed By: #### U CHEIKH, TSH, T7, CMP, LIPID #### [facility] [address] [address] [address] Ashanti Deras CO2 [Moles/Vol] 26.9 mmol/L Normal 21.0-32.0 [facility] Comment on above: Performed By: #### U CHEIKH, TSH, T7, CMP, LIPID #### [facility] [address] [address] [address] Ashanti Deras Creatinine [Mass/Vol] 1.15 mg/dL Normal 0.70-1.30 [facility] Comment on above: Performed By: #### U CHEIKH, TSH, T7, CMP, LIPID #### [facility] [address] [place] [address] Dr. Ashanti Deras EGFR-AF GABONESE >60 Normal >=60 [facility] Comment on above: Performed By: #### U CHEIKH, TSH, T7, CMP, LIPID #### [facility] [address] [address] [address] Ashanti Deras EGFR-NON AF GABONESE >60 Normal >=60 [facility] Comment on above: Performed By: #### U CHEIKH, TSH, T7, CMP, LIPID #### [facility] [address] [place] [address] Dr. Ashanti Deras Globulin (S) [Mass/Vol] 3.3 g/dL Normal [facility] Comment on above: Performed By: #### U CHEIKH, TSH, T7, CMP, LIPID #### [facility] [address] [place] [address] Dr. Ashanti Deras Glucose [Mass/Vol] 103 mg/dL Normal 74-106 [facility] Comment on above: Performed By: #### U CHEIKH, TSH, T7, CMP, LIPID #### [facility] [address] [address] [address] Ashanti Deras Potassium [Moles/Vol] 3.7 mmol/L Normal 3.5-5.1 [facility] Comment on above: Performed By: #### U CHEIKH, TSH, T7, CMP, LIPID #### [facility] [address] [place] [address] Dr. Ashanti Deras Protein [Mass/Vol] 7.5 g/dL Normal 6.4-8.2 [facility] Comment on above: Performed By: #### U CHEIKH, TSH, T7, CMP, LIPID #### [facility] [address] [place] [address] Dr. Ashanti Deras Sodium [Moles/Vol] 141 mmol/L Normal 136-145 [facility] Comment on above: Performed By: #### U CHEIKH, TSH, T7, CMP, LIPID #### [facility] [address] [address] [address] Ashanti Deras Urea nitrogen [Mass/Vol] 12.0 mg/dL Normal 7.0-18.0 [facility] Comment on above: Performed By: #### U CHEIKH, TSH, T7, CMP, LIPID #### [facility] [address] [place] [address] Dr. Ashanti Deras Urea nitrogen/Creatinine [Mass ratio] 10.4 mg/mg Normal [facility] Comment on above: Performed By: #### U CHEIKH, TSH, T7, CMP, LIPID #### [facility] [address] [place] [address] Dr. Ashanti Deras TSHon 07-30-2022 TSH 0.880 uIU/mL Normal 0.358-3.740 [facility] Comment on above: Performed By: #### U CHEIKH, TSH, T7, CMP, LIPID #### [facility] [address] [place] [address] Dr. Ashanti Deras URIC ACID SERUMon 07-30-2022 Urate [Mass/Vol] 7.6 mg/dL Critically high 3.5-7.2 [facility] Comment on above: Performed By: #### U CHEIKH, TSH, T7, CMP, LIPID #### [facility] [address] [place] [address] Dr. Ashanti Deras Vital Signs Date Time Vital Sign Value Performing Clinician Jude hu 07-30-2023 13:07-0400 Blood Pressure Location Lonnie FLORIAN [facility] 07-30-2023 13:07-0400 Diastolic blood pressure 80 mm[Hg] Lonnie FLORIAN [facility] 07-30-2023 13:07-0400 Heart rate 72 /min Lonnie FLORIAN [facility] 07-30-2023 13:07-0400 Respiratory rate 16 /min Lonnie FLORIAN [facility] 07-30-2023 13:07-0400 Systolic blood pressure 126 mm[Hg] Lonnie FLORIAN [facility] [place] Encounters Encounter Date Encounter Type Care Provider Facility Start: 07-30-2023 End: 07-31-2023 ambulatory Lonnie FLORIAN Facility:[facility] Start: 07-30-2023 End: 07-30-2023 Patient encounter procedure Lonnie FLORIAN General [facility] [place] Start: 06-28-2023 ambulatory Lonnie FLORIAN Facility: [facility] [place] Start: 08-06-2022 Encounter for genera l adult medical examination without abnormal findings DR VALENTÍN ABDUL . [facility] Start: 07-30-2022 End: 07-31-[address] VALENTÍN ABDUL . Facility: Start: 07-30-2022 End: 07-31-2022 Encounter for general adult medical examination without abnormal findings DR VALENTÍN ABDUL . Facility: Procedures Date Procedure Procedure Detail Performing Clinician Start: 07-30-[address] PK ABDUL . Comment on above: Performed By: #### [facility] #### [facility] [address] [place] [address] Dr. Ashanti Deras Circumcision Lonnie JAMESEz Evacuation of hematoma Zander FLORIAN Comment on above: penile Repair of right ingu inal hernia Lonnie RAMIREZEz Immunizations Immunization Date Immunization Notes Care Provider Fa cili 02-13-2023 influenza virus vaccine, unspecified formulation Lonnie RAMIREZEz [facility] [place] 03-24-2022 SARS-CoV-2 (COVID-19 ) [id number] Lnonie RAMIREZL [facility] [place] 01-04-2022 SARS-CoV-2 mRNA (bfjszdokmdh-nmem-vaiq ose) vaccine Lonnie RAMIREZL [facility] [place] 04-14-2021 SARS-CoV-2 (COVID-19 ) mRNA BNT-162b2 vax Lonnie FLORIAN [facility] 09-24-2020 SARS-CoV-2 (COVID-19 ) Ad26 vaccine, recombinant Lonnie FLORIAN [facility] Comment on above: Result Comment: 2023: TPVAL NEGATED: Highlighted row has not occurred!07-30-2023 influenza virus vaccine, unspecified formulation Lonnie FLORIAN [facility] Payers Date Payer Category Payer Unknown [id number] 1990 Unknown [id number] 1990 Unknown [id number] Social History Date Type Detail Facility Start: 07-30-2023 Tobacco smoking status Never s moked tobacco (finding) [facility] [place] Tobacco smoking status Never Gener al [facility] [place] Sex Assigned At Male [facility] Functional Status Date Assessment Result Facility 07-30-2023 Functional Status N/A [facility] Clinical Note 07-30-2023 Note Date & [...] virus vaccine, inactivated 02/13/2023 Recorded SARS-CoV-2 (COVID-19) [id number] 03/24/2022 Recorded SARSCoV2 mRNA(wzfwvqrsk-omqk-ylbshz) vac 01/04/2022 Recorded S (more content not included)... [facility] Comment on above: Result Comment: Elec tronically [...] DATE CREATED AUTHOR AUTHOR'S ORGANIZ ATION 08/02/2023 [facility] Patient Care team informatio n (unrecognized section and content) Personnel Name: Valentín Abdul MD Address: Address: [address] [place] [address] FOR RECORDS PERTAINING TO PATIENTS WHO ARE [...] BE BASED ON THE PRIMARY CLINICAL RECORDS. [facility]. provides no warranty or guarantee of the accuracy or completeness of information in this document.
[2023-09-18 06:30] VITALS: BP 143/99; PULSE 78; TEMP 36.2; O2SAT 98; BMI 35.2
[2023-09-18] MEDS: LACTATED RINGER'S SOLUTION 1,000 ML 50 ML IV (06:55)
[2023-09-18 07:47] VITALS: BP 99/62; PULSE 94; TEMP 36.3
[2023-09-18 08:02] VITALS: BP 103/69; PULSE 90; O2SAT 95
[2023-09-18 08:17] VITALS: BP 126/79; PULSE 90; O2SAT 94
== END 2023-09-18 08:17 | disposition home or self-care (01) ==
PROVIDERS: PCP Family Medicine; Visit Provider Surgery
PROC: (CPT 00812; principal; 2023-09-18 07:30)
DX: K62.5 Hemorrhage of anus and rectum (principal); K59.09 Other constipation; F41.9 Anxiety disorder, unspecified; E66.01 Morbid (severe) obesity due to excess calories; R48.0 Dyslexia and alexia; K58.9 Irritable bowel syndrome, unspecified; Z68.35 Body mass index [BMI] 35.0-35.9, adult
CPT/HCPCS: 00812; 45378; J2704

== ENCOUNTER 2025-02-17 16:41 | Emergency (ER) | payer SELFPAY ==
[2025-02-17 16:45] VITALS: BP 142/98; PULSE 107; TEMP 36.8; O2SAT 98; BMI 37.6
[2025-02-17] MEDS: DIPHTH,PERTUSS(ACELL),TET VAC 0.5 ML SYRINGE IM (18:20)
--- NOTE | 2025-02-17 18:57 | ED_ITS ---
HPI HPI - General Adult General Chief complaint: Skin/Abscess/Foreign Body Stated complaint: SCRATCHED BY A STRAY CAT Time Seen by Provider: 02/17/25 17:08 Source: patient Mode of arrival: walk-in History of Present Illness HPI narrative: Patient is a 34-year-old male who presents to the emergency department about an hour after he was scratched by a stray cat on his left forearm. He did clean it and apply Neosporin. He is unsure if the cat bit him. He states that it is a stray cat that is known to him and he was petting the cat for a while when it all of a sudden scratched him. The cat did not appear to be ill. His Tetanus is not up to date. Related Data Home Medications ?Medication ?Instructions ?Recorded ?Confirmed citalopram 40 mg tablet (Celexa) 40 mg PO DAILY 02/17/25 lactulose 10 gram/15 mL oral 10 g PO DAILY PRN constip ation 09/06/23 02/17/25 solution pantoprazole 40 mg tablet,delayed 40 mg PO DAILY 09/0502/17/25 release Previous Rx's ?Medication ?Instructions ?Recorded sulfamethoxazole 800 1 tab PO Q12H 5 days #10 tab s 02/17/25 mg-trimethoprim 160 mg tablet (Bactrim DS) Allergies Allergy/AdvReac Type Severity Reaction Status Date / Time ciprofloxacin (From Cipro) Allergy Hives Verified 09/06/23 11:32 Penicillins Allergy Hives Verified 09/06/23 11:32 Opioid HPI Opioid Management Most Recent Opioid Data: Last Pain Scale 0 02/17/25, 17:15 Review of Systems ROS Status of ROS 10 or more systems reviewed and unremark able except as noted in history and below [facility] Medical History (Updated 02/17/25 @ 17:25 by DONIS Lozano) GERD (gastroesophageal reflux disease) ?K21.9 - Gastro-esophageal reflux disease without esophagitis (ICD-10) Learning disabilities ?F81.9 - Developmental disorder of scholastic skills, unspecified (ICD-10) Asthma ?J45.909 - Unspecified asthma, uncomplicated (ICD-10) Postoperative nausea and vomiting ?R11.2 - Nausea with vomiting, unspecified (ICD-10) ?Z98.890 - Other specified postprocedural states (ICD-10) History of constipation ?Z87.19 - Personal history of other diseases of the digestive system (ICD-10) Rectal bleeding ?K62.5 - Hemorrhage of anus and rectum (ICD-10) Irritable bowel ?K58.9 - Irritable bowel syndrome without diarrhea (ICD-10) Dyslexia ?R48.0 - Dyslexia and alexia (ICD-10) Anxiety ?F41.9 - Anxiety disorder, unspecified (ICD-10) Surgical History (Updated 09/09/23 @ 13:04 by Alana Squires NP) History of evacuation of hematoma ?Z98.890 - Other specified postprocedural states (ICD-10) History of right inguinal hernia repair ?Z98.890 - Other specified postprocedural states (ICD-10) ?Z87.19 - Personal history of other diseases of the digestive system (ICD-10) History of circumcision (2015) ?Z98.890 - Other specified postprocedural states (ICD-10) Family History (Updated 09/06/23 @ 11:23 by Cora Pritchett) Brother Asthma Father Heart disease Mother Heart disease Other Family history of cancer Family history of diabetes mellitus Family history of hypertension Social History (Updated 09/18/23 @ 06:37 by Jaclyn Ennis RN) Within the past year, how often did you have a drink containing alcohol: monthly or less Smoking status: Never smoker Non-prescribed substance use: denies use Highest level of school completed/degree received: high school graduate Little interest or pleasure in doing things: not at all Feeling down, depressed, or hopeless: not at all Exam Narrative Exam Narrative: General: No distress, age-appropriate Skin: Warm, dry, no pallor. No rash. Scratches to the ventral aspect of the left forearm. There appears to be a puncture wound with a small amount of surrounding ecchymosis. Head: Normocephalic, atraumatic. Neck: Supple, non-tender. Eye: Pupils are equal, round and EOMI. No scleral icterus. Ears, Nose, Mouth, and Throat: No nasal mucosal hypertrophy. Oral mucosa is moist, no posterior oropharynx erythema, uvula is mid-line Cardiovascular: Regular Rate and Rhythm without murmur, gallop or rub. Respiratory: No accessory muscle use or respiratory distress. Lungs are clear to auscultation, no wheezing, rales or rhonchi Musculoskeletal: Full ROM of all extremities, no calf or popliteal tenderness Neurological: A&O x4. No cranial nerve dysfunction observed. No truncal ataxia. Moves all extremities. Sensation intact. Psychiatric: Cooperative and interactive. Normal mood and affect. Constitutional Vital Signs, click to edit/add: Last Vital Signs Temp 98.3 F 02/17/25 16:45 Pulse 107 H 02/17/25 16:45 Resp 18 02/17/25 16:45 BP 142/98 H 02/17/25 16:45 Pulse Ox 98 02/17/25 16:45 O2 Del Method Room Air 02/17/25 16:45 Documenting provider has reviewed patient's vital signs: yes Course Vital Signs Vital signs: Vital Signs Temperature 98.3 F 02/17/25 16:45 Pulse Rate 107 H 02/17/25 16:45 Respiratory Rate 18 02/17/25 16:45 Blood Pressure 142/98 H 02/17/25 16:45 Pulse Oximetry 98 02/17/25 16:45 Oxygen Delivery Method Room Air 02/17/25 16:45 Temperature 98.3 F 02/17/25 16:45 Pulse Rate 107 H 02/17/25 16:45 Respiratory Rate 18 02/17/25 16:45 Blood Pressure 142/98 H 02/17/25 16:45 Pulse Oximetry 98 02/17/25 16:45 Oxygen Delivery Method Room Air 02/17/25 16:45 Medical Decision Making MDM Narrative Medical decision making narrative: This is a 34 yr old male that presented to the ER with concerns for rabies after he was scratched by a stray cat on the left forearm after he was petting it for awhile. He did wash the wound and put Neosporin on it. The stray cat is known to him and he denies that it was acting strangely/aggressively, drooling, trouble walking, disorientation, or paralysis. He is unsure if the cat bit him or not. Tetanus not up to date. On arrival patient is in no distress, vitals are stable, scratches/ wounds on left forearm appear clean and hemostatic. No drainage or erythema surrounding wounds. Cat Scratch - Tetanus updated - Will defer rabies post exposure prophylaxis-pt is not immunocompromised, cat can be found it is known to him, scratches and possible puncture wound from bite is very superficial, cat was not acting abnormally or aggressive, cat rabies has not been documented in the area. - Will give prophylactic antibiotics for cat scratch disease-pt allergic to PCN, will start on Bactrim x 5 days - Return precautions discussed such as signs of local or systemic infection. - Follow up with PCP, Dr Hankins. Differential Diagnosis Differential Diagnosis: Infection, Cat scratch, Rabies Discharge Plan Discharge Chief Complaint: Skin/Abscess/Foreign Body Clinical Impression: Animal scratch Patient Disposition: Home, Self-Care Time of Disposition Decision: 17:25 Condition: Good Mode of Transportation: Private Vehicle Prescriptions / Home Meds: New sulfamethoxazole-trimethoprim [Bactrim DS] 800-160 mg tablet 1 tab PO Q12H 5 Days Qty: 10 0RF No Action lactulose 10 gram/15 mL solution 10 g PO DAILY PRN (Reason: constipation) citalopram [Celexa] 40 mg tablet 40 mg PO DAILY pantoprazole 40 mg tablet,delayed release (DR/EC) 40 mg PO DAILY Print Language: Italian Instructions: Cat Scratch Disease (ED) Additional Instructions: Wound Care Instructions: * Keep the wound clean and dry for the next 24 hours. * Wash gently with soap and water daily. * Apply an [id number] antibiotic ointment (e.g., Neosporin) and cover with a clean bandage. * Avoid scratching or picking at the wound. Return to the ER or Call Your Doctor If: * Increasing pain, redness, warmth, or swelling * Pus or foul-smelling drainage from the wound * Fever >100.4?F (38?C), chills, or body aches * Swollen lymph nodes (especially in the armpit) * Signs of allergic reaction (rash, hives, difficulty breathing) Referrals: Ha Hankins MD [Primary Care Provider, Family Practice] - 1 week Discharge Date/Time: 02/17/25 18:27
== END 2025-02-17 18:27 | disposition home or self-care (01) ==
PROVIDERS: Emergency Provider Emergency Medicine; PCP Family Medicine
DX: S50.812A Abrasion of left forearm, initial encounter (principal); W55.03XA Scratched by cat, initial encounter; Z23 Encounter for immunization
CPT/HCPCS: 90471; 90715; 99283